=== PATIENT | male | born 1960 | race Caucasian/White ===

== ENCOUNTER 2016-12-21 01:13 | Inpatient (IN) | payer MEDICARE, OTHER ==
[~2016-12-21] VITALS: Ht 175.3 cm; Wt 76.7 kg
[~2016-12-21 01:13] MED LIST: SINGULAIR10 MG PO
[2016-12-21 02:11] LABS: HEMOGLOBIN 15.6 gm/dl (14.0-17.5); RED BLOOD COUNT 5.19 M/UL (4.20-5.50)
[2016-12-21] MEDS ORDERED: ASPIR 8181 MG PO (06:14)
[2016-12-21] MEDS ORDERED: BUSPAR 10MG10 MG PO (06:15)
[2016-12-21] MEDS ORDERED: SYMBICORT 80-10.2 GM INH (06:15)
[2016-12-21] MEDS ORDERED: CLARITIN10 MG PO (06:15)
[2016-12-21] MEDS ORDERED: LIORESAL TAB 1010 MG PO (06:16)
[2016-12-21] MEDS ORDERED: PROAIR HFA8.5 GM INH (06:17)
[2016-12-22 03:53] LABS: HEMOGLOBIN 13.2 gm/dl (14.0-17.5); RED BLOOD COUNT 4.4 M/UL (4.20-5.50); WHITE BLOOD COUNT 10.2 K/UL (4.5-11.0)
[2016-12-22 12:17] LABS: BUN/CREATININE RATIO 12 (0-10)
[2016-12-23 02:22] LABS: HEMOGLOBIN 13.9 gm/dl (14.0-17.5); RED BLOOD COUNT 4.63 M/UL (4.20-5.50)
[2016-12-23 02:40] LABS: WHITE BLOOD COUNT 24.9 K/UL (4.5-11.0)
[2016-12-24 03:29] LABS: HEMOGLOBIN 12.4 gm/dl (14.0-17.5)
[2016-12-24 03:30] LABS: RED BLOOD COUNT 4.13 M/UL (4.20-5.50)
[2016-12-25 04:40] LABS: HEMOGLOBIN 11.2 gm/dl (14.0-17.5); RED BLOOD COUNT 3.86 M/UL (4.20-5.50); WHITE BLOOD COUNT 8.7 K/UL (4.5-11.0)
[2016-12-26 04:00] LABS: HEMOGLOBIN 12.3 gm/dl (14.0-17.5); RED BLOOD COUNT 4.09 M/UL (4.20-5.50)
[2016-12-26 04:06] LABS: WHITE BLOOD COUNT 14.5 K/UL (4.5-11.0)
[2016-12-27 07:33] LABS: HEMOGLOBIN 12.4 gm/dl (14.0-17.5); RED BLOOD COUNT 4.09 M/UL (4.20-5.50); WHITE BLOOD COUNT 16.3 K/UL (4.5-11.0)
[2016-12-28 03:20] LABS: HEMOGLOBIN 12.1 gm/dl (14.0-17.5); RED BLOOD COUNT 4.03 M/UL (4.20-5.50); WHITE BLOOD COUNT 15.3 K/UL (4.5-11.0)
[2016-12-29 04:30] LABS: HEMOGLOBIN 11.3 gm/dl (14.0-17.5); RED BLOOD COUNT 3.72 M/UL (4.20-5.50); WHITE BLOOD COUNT 11.9 K/UL (4.5-11.0)
[2016-12-30 03:49] LABS: HEMOGLOBIN 11.2 gm/dl (14.0-17.5); RED BLOOD COUNT 3.79 M/UL (4.20-5.50); WHITE BLOOD COUNT 13.7 K/UL (4.5-11.0)
[2016-12-31 04:52] LABS: HEMOGLOBIN 12.4 gm/dl (14.0-17.5); RED BLOOD COUNT 4.12 M/UL (4.20-5.50); WHITE BLOOD COUNT 15.1 K/UL (4.5-11.0)
[2017-01-01 05:33] LABS: HEMOGLOBIN 11.6 gm/dl (14.0-17.5); RED BLOOD COUNT 3.94 M/UL (4.20-5.50); WHITE BLOOD COUNT 14.5 K/UL (4.5-11.0)
[2017-01-02 03:52] LABS: HEMOGLOBIN 10.9 gm/dl (14.0-17.5); RED BLOOD COUNT 3.71 M/UL (4.20-5.50); WHITE BLOOD COUNT 14.5 K/UL (4.5-11.0)
[2017-01-04 06:20] LABS: HEMOGLOBIN 11.2 gm/dl (14.0-17.5)
[2017-01-05 04:40] LABS: RED BLOOD COUNT 3.78 M/UL (4.20-5.50); WHITE BLOOD COUNT 11.5 K/UL (4.5-11.0)
[2017-01-06 04:14] LABS: HEMOGLOBIN 11.9 gm/dl (14.0-17.5); RED BLOOD COUNT 4.02 M/UL (4.20-5.50)
[2017-01-06 04:23] LABS: WHITE BLOOD COUNT 23.3 K/UL (4.5-11.0)
[2017-01-07 06:07] LABS: HEMOGLOBIN 11.3 gm/dl (14.0-17.5); RED BLOOD COUNT 3.85 M/UL (4.20-5.50); WHITE BLOOD COUNT 19.9 K/UL (4.5-11.0)
[2017-01-09 07:05] LABS: HEMOGLOBIN 11.2 gm/dl (14.0-17.5); RED BLOOD COUNT 3.81 M/UL (4.20-5.50); WHITE BLOOD COUNT 21.1 K/UL (4.5-11.0)
[2017-01-10] MEDS ORDERED: METOPROLOL TART50 MG PO (15:21)
[2017-01-10] MEDS ORDERED: MYCOSTATIN OINT15 GM TOP (15:23)
[2017-01-10] MEDS ORDERED: PREDNISONE 10 M10 MG PO (15:24)
[2017-01-10] MEDS ORDERED: CATAPRES 0.1MG0.1 MG PO (15:26)
== END 2017-01-12 15:35 | disposition home or self-care (01) | DRG 564 ==
LOC: ER1 01:13 → CCU 06:13 → ER1 07:29 → CCU 07:30 → MED SURG 4 07:30 → M/S 12-22 15:49 → CCU 12-22 21:00 → PROG CARE 12-29 18:24 → MED SURG 4 01-02 18:54
PROVIDERS: Emergency Medicine; Family Medicine; Hospitalist; Internal Medicine; Internal Medicine Nephrology; Internal Medicine Pulmonary Disease; ADMIT Internal Medicine
PROC: 5A09357 Assistance with Respiratory Ventilation, Less than 24 Consecutive Hours, Continuous Positive Airway Pressure (ICD-10-PCS; 2016-12-22)
PROC: 5A1945Z Respiratory Ventilation, 24-96 Consecutive Hours (ICD-10-PCS; principal; 2016-12-23)
PROC: 0BH17EZ Insertion of Endotracheal Airway into Trachea, Via Natural or Artificial Opening (ICD-10-PCS; 2016-12-23)
DX: T79.6XXA Traumatic ischemia of muscle, initial encounter (principal); J96.01 Acute respiratory failure with hypoxia; N17.0 Acute kidney failure with tubular necrosis; I50.23 Acute on chronic systolic (congestive) heart failure; J18.9 Pneumonia, unspecified organism; J96.02 Acute respiratory failure with hypercapnia; N10 Acute pyelonephritis; E87.2 Acidosis; T88.6XXA Anaphylactic reaction due to adverse effect of correct drug or medicament properly administered, initial encounter; E87.0 Hyperosmolality and hypernatremia; I11.0 Hypertensive heart disease with heart failure; E86.0 Dehydration; J44.9 Chronic obstructive pulmonary disease, unspecified; W19.XXXA Unspecified fall, initial encounter; T41.295A Adverse effect of other general anesthetics, initial encounter; M51.36 Other intervertebral disc degeneration, lumbar region; G89.29 Other chronic pain; M24.531 Contracture, right wrist; R13.10 Dysphagia, unspecified; S71.142A Puncture wound with foreign body, left thigh, initial encounter; W45.8XXA Other foreign body or object entering through skin, initial encounter; R19.7 Diarrhea, unspecified; R74.8 Abnormal levels of other serum enzymes; Z87.820 Personal history of traumatic brain injury; Z99.3 Dependence on wheelchair; D72.829 Elevated white blood cell count, unspecified; T38.0X5A Adverse effect of glucocorticoids and synthetic analogues, initial encounter; F17.200 Nicotine dependence, unspecified, uncomplicated; Z75.1 Person awaiting admission to adequate facility elsewhere; Z79.82 Long term (current) use of aspirin; Z79.51 Long term (current) use of inhaled steroids; Z79.899 Other long term (current) drug therapy; Z98.890 Other specified postprocedural states
CPT/HCPCS: ECHO; 31500; 36415; 36600; 70450; 71010; 73522; 73552; 73564; 74230; 76705; 80048; 80053; 80061; 80074; 81001; 82436; 82550; 82553; 82570; 82803; 82962; 82977; 83036; 83605; 83735; 83880; 84100; 84133; 84156; 84300; 84443; 84484; 85014; 85018; 85025; 85027; 85610; 85730; 86900; 86901; 87040; 87070; 87086; 87205; 89050; 92526; 92610; 92611-GN; 93005; 93306; 94002; 94003; 94640; 94660; 94664; 94760; 96365; 96366; 96367; 96375; 97110; 97116; 97530; 99291; A4628; J0330; J1650; J1885; J1940; J1956; J2250; J2270; J2920; J3370; J7030; J7050; J7070

== ENCOUNTER 2017-01-14 17:29 | Emergency (ER) | payer MEDICARE, OTHER ==
[~2017-01-14 17:29] MED LIST changes: +ASPIR 8181 MG PO; +BUSPAR 10MG10 MG PO; +CATAPRES 0.1MG0.1 MG PO; +CLARITIN10 MG PO; +LIORESAL TAB 1010 MG PO; +METOPROLOL TART50 MG PO; +MYCOSTATIN OINT15 GM TOP; +PREDNISONE 10 M10 MG PO; +PROAIR HFA8.5 GM INH; +SYMBICORT 80-10.2 GM INH
[2017-01-14 21:18] LABS: RED BLOOD COUNT 4.5 M/UL (4.20-5.50)
[2017-01-14 22:23] LABS: HEMOGLOBIN 13.5 gm/dl (14.0-17.5); WHITE BLOOD COUNT 33.1 K/UL (4.5-11.0)
== END 2017-01-15 02:50 | disposition home or self-care (01) ==
LOC: ER1 17:29
PROVIDERS: Emergency Medicine
DX: J44.9 Chronic obstructive pulmonary disease, unspecified (principal); F17.210 Nicotine dependence, cigarettes, uncomplicated
CPT/HCPCS: 36415; 36600; 71010; 80053; 82803; 83605; 83880; 84484; 85025; 93005; 99284

== ENCOUNTER → 2017-01-21 | Outpatient (CLI) | payer MEDICARE, OTHER ==
[~2017-01-21] MED LIST changes: +CHANTIX0.5 MG PO; +CLINDAMYCIN HC300 MG PO
== END ==
LOC: OPSV 12:00
DX: L89.152 Pressure ulcer of sacral region, stage 2 (principal); Z87.820 Personal history of traumatic brain injury; R13.13 Dysphagia, pharyngeal phase; G24.9 Dystonia, unspecified; G83.9 Paralytic syndrome, unspecified; T17.320A Food in larynx causing asphyxiation, initial encounter
CPT/HCPCS: 74230; 92611-GN; G0463

== ENCOUNTER → 2017-01-21 | Outpatient (CLI) | payer MEDICARE, OTHER | LOC: RAD 08:59 | DX: R13.13 Dysphagia, pharyngeal phase (principal); Z87.820 Personal history of traumatic brain injury; G24.9 Dystonia, unspecified; G83.9 Paralytic syndrome, unspecified; T17.320A Food in larynx causing asphyxiation, initial encounter | CPT/HCPCS: 74230; 92611-GN ==

== ENCOUNTER → 2017-01-23 | Outpatient (CLI) | payer MEDICARE, OTHER | LOC: OPSV 10:30 | DX: L89.152 Pressure ulcer of sacral region, stage 2 (principal) | CPT/HCPCS: G0463 ==

== ENCOUNTER → 2017-01-26 | Outpatient (CLI) | payer MEDICARE, OTHER | LOC: OPSV 10:19 | DX: L89.152 Pressure ulcer of sacral region, stage 2 (principal) | CPT/HCPCS: G0463 ==

== ENCOUNTER → 2017-01-30 | Outpatient (CLI) | payer MEDICARE, OTHER | LOC: OPSV 01-28 10:30 | DX: L89.152 Pressure ulcer of sacral region, stage 2 (principal) | CPT/HCPCS: G0463 ==

== ENCOUNTER 2017-02-04 04:01 | Inpatient (IN) | payer MEDICARE, OTHER ==
[~2017-02-04] VITALS: Ht 175.3 cm; Wt 72.6 kg
[~2017-02-04 04:01] MED LIST changes: -CHANTIX0.5 MG PO; -CLINDAMYCIN HC300 MG PO
[2017-02-04 04:39] LABS: HEMOGLOBIN 11.8 gm/dl (14.0-17.5); RED BLOOD COUNT 3.91 M/UL (4.20-5.50); WHITE BLOOD COUNT 17.3 K/UL (4.5-11.0)
[2017-02-04 04:59] LABS: BUN/CREATININE RATIO 14 (0-10)
[2017-02-04] MEDS ORDERED: CHANTIX0.5 MG PO (08:49)
[2017-02-05 05:20] LABS: HEMOGLOBIN 10.2 gm/dl (14.0-17.5)
[2017-02-05 05:21] LABS: RED BLOOD COUNT 3.46 M/UL (4.20-5.50); WHITE BLOOD COUNT 12.4 K/UL (4.5-11.0)
[2017-02-05 05:42] LABS: BUN/CREATININE RATIO 12 (0-10)
[2017-02-06 05:54] LABS: HEMOGLOBIN 11.1 gm/dl (14.0-17.5); RED BLOOD COUNT 3.67 M/UL (4.20-5.50); WHITE BLOOD COUNT 11.4 K/UL (4.5-11.0)
[2017-02-06 06:05] LABS: BUN/CREATININE RATIO 13 (0-10)
[2017-02-07 06:09] LABS: BUN/CREATININE RATIO 13 (0-10)
[2017-02-09] MEDS ORDERED: CLINDAMYCIN HC300 MG PO (17:04)
== END 2017-02-09 18:40 | disposition home health service (06) | DRG 177 ==
LOC: ER1 04:01 → ZEROF 05:38 → MED SURG 4 05:38
PROVIDERS: Emergency Medicine; Physician Assistant; Student in an Organized Health Care Education/Training Program; ADMIT Internal Medicine
DX: J69.0 Pneumonitis due to inhalation of food and vomit (principal); J96.01 Acute respiratory failure with hypoxia; I50.22 Chronic systolic (congestive) heart failure; I11.0 Hypertensive heart disease with heart failure; R07.89 Other chest pain; J44.9 Chronic obstructive pulmonary disease, unspecified; R74.8 Abnormal levels of other serum enzymes; I25.10 Atherosclerotic heart disease of native coronary artery without angina pectoris; M51.36 Other intervertebral disc degeneration, lumbar region; R13.10 Dysphagia, unspecified; R47.9 Unspecified speech disturbances; G89.29 Other chronic pain; F17.200 Nicotine dependence, unspecified, uncomplicated; Z87.820 Personal history of traumatic brain injury; Z93.1 Gastrostomy status; Z99.3 Dependence on wheelchair; Z72.3 Lack of physical exercise; Z79.82 Long term (current) use of aspirin; Z79.51 Long term (current) use of inhaled steroids; Z79.52 Long term (current) use of systemic steroids; Z79.899 Other long term (current) drug therapy; Z88.5 Allergy status to narcotic agent; Z88.0 Allergy status to penicillin; Z98.890 Other specified postprocedural states
CPT/HCPCS: 36415; 36600; 71010; 74230; 80048; 80053; 80202; 82550; 82553; 82803; 83605; 83874; 83880; 84484; 85025; 85027; 85379; 87040; 87070; 87205; 92526; 92610; 92611-GN; 93005; 94640; 94664; 96361; 96365; 96367; 96375; 99285; G0378; G0463; J0692; J1650; J1956; J2270; J3370; J7050; J7070

== ENCOUNTER 2017-02-23 03:00 | Emergency (ER) | payer MEDICARE, OTHER ==
[~2017-02-23 03:00] MED LIST changes: +CHANTIX0.5 MG PO; +CLINDAMYCIN HC300 MG PO
[2017-02-23 03:30] LABS: HEMOGLOBIN 12.8 gm/dl (14.0-17.5); RED BLOOD COUNT 4.3 M/UL (4.20-5.50); WHITE BLOOD COUNT 11.6 K/UL (4.5-11.0)
[2017-02-23 04:24] LABS: BUN/CREATININE RATIO 11 (0-10)
== END 2017-02-23 18:50 | disposition home or self-care (01) ==
LOC: ER1 03:00 → ZEROF 06:10 → ER1 06:10 → ZEROF 18:20
PROVIDERS: Family Medicine
DX: R07.9 Chest pain, unspecified (principal); R79.89 Other specified abnormal findings of blood chemistry; J44.9 Chronic obstructive pulmonary disease, unspecified; I11.0 Hypertensive heart disease with heart failure; I50.22 Chronic systolic (congestive) heart failure; D72.829 Elevated white blood cell count, unspecified; J45.909 Unspecified asthma, uncomplicated; E78.5 Hyperlipidemia, unspecified; G89.29 Other chronic pain; M54.5 Low back pain; J96.01 Acute respiratory failure with hypoxia; R47.9 Unspecified speech disturbances; D64.9 Anemia, unspecified; F17.210 Nicotine dependence, cigarettes, uncomplicated; Z79.82 Long term (current) use of aspirin; Z87.820 Personal history of traumatic brain injury; Z79.899 Other long term (current) drug therapy
CPT/HCPCS: 36415; 71010; 78452; 80053; 80061; 82550; 82553; 83874; 84484; 85025; 87040; 93005; 93017; 99285; A9502; G0378; J2785